=== PATIENT | male | born 1960 | race Caucasian/White ===

== ENCOUNTER 2018-06-16 14:09 | Inpatient (IN) | payer BC ==
[2018-06-16] MEDS ORDERED: NACL 0.9% 3 ML SYG IV (16:00)
[2018-06-16] MEDS ORDERED: ONDANSETRON 4 MG INJ IV (16:00)
[2018-06-16] MEDS ORDERED: CLONIDINE 0.1 MG/24 HR PATCH TRANSDERM (16:00)
[2018-06-16 16:05] LABS: ADD MAN DIFF? NO
[2018-06-16 16:07] LABS: WHITE BLOOD COUNT 5.6 10^3/ul (4.8-10.8)
[2018-06-16 16:07] LABS: BASOPHIL # 0.1 10^3/ul (0.0-0.1); BASOPHILS % 0.9 % (0.0-2.0); EOSINOPHILS # 0.1 10^3/ul (0.0-0.5); EOSINOPHILS % 1.2 % (0.0-7.0); HEMATOCRIT 47.8 % (42.0-52.0); HEMOGLOBIN 14.6 g/dl (14.0-18.0); LYMPHOCYTES # 1.1 10^3/ul (0.8-2.9); LYMPHOCYTES % 19.4 % (15.0-51.0); MEAN CORPUSCULAR HEMOGLOBIN 26.4 pg (29.0-33.0); MEAN CORPUSCULAR HGB CONC 30.5 g/dl (32.0-37.0); MEAN CORPUSCULAR VOLUME 86.6 fl (82.0-101.0); MEAN PLATELET VOLUME 10.2 fl (7.4-10.4); MONOCYTE # 0.5 10^3/ul (0.3-0.9); MONOCYTES % 8.4 % (0.0-11.0); NEUTROPHIL # 3.9 10^3/ul (1.6-7.5); NEUTROPHILS % 69.7 % (39.0-77.0); PLATELET COUNT 265 10^3/UL (140-415); RED BLOOD COUNT 5.52 10^6/ul (4.70-6.10); RED CELL DISTRIBUTION WIDTH 14.8 % (11.5-14.5)
[2018-06-16 16:23] LABS: ANION GAP 8 (5-13); BLOOD UREA NITROGEN 29 mg/dl (7-20); CARBON DIOXIDE 28 mmol/L (21-31); CHLORIDE 113 mmol/L (97-110); CREATININE 0.69 mg/dl (0.61-1.24); Estimated GFR > 60 mL/min (>60); GLUCOSE 120 mg/dl (70-220); POTASSIUM 3.9 mmol/L (3.5-5.1); SODIUM 149 mmol/L (135-144)
[2018-06-17] MEDS ORDERED: METOPROLOL 25 MG TAB (04:08)
[2018-06-17] MEDS: HYDROCODONE/APAP (5/325) TAB PO (04:28)
[2018-06-17] MEDS: METOPROLOL (XL) 25 MG TAB PO (04:28)
[2018-06-17 06:19] LABS: ADD MAN DIFF? NO
[2018-06-17 06:22] LABS: WHITE BLOOD COUNT 7.7 10^3/ul (4.8-10.8)
[2018-06-17 06:22] LABS: BASOPHILS % 0.4 % (0.0-2.0); EOSINOPHILS % 0.4 % (0.0-7.0); HEMATOCRIT 47.4 % (42.0-52.0); HEMOGLOBIN 14.4 g/dl (14.0-18.0); LYMPHOCYTES # 1.4 10^3/ul (0.8-2.9); LYMPHOCYTES % 18.1 % (15.0-51.0); MEAN CORPUSCULAR HEMOGLOBIN 26.7 pg (29.0-33.0); MEAN CORPUSCULAR HGB CONC 30.4 g/dl (32.0-37.0); MEAN CORPUSCULAR VOLUME 87.9 fl (82.0-101.0); MONOCYTE # 0.5 10^3/ul (0.3-0.9); MONOCYTES % 6.5 % (0.0-11.0); NEUTROPHIL # 5.7 10^3/ul (1.6-7.5); NEUTROPHILS % 74.2 % (39.0-77.0); PLATELET COUNT 255 10^3/UL (140-415); RED BLOOD COUNT 5.39 10^6/ul (4.70-6.10); RED CELL DISTRIBUTION WIDTH 14.6 % (11.5-14.5)
[2018-06-17 07:07] LABS: ALANINE AMINOTRANSFERASE 32 IU/L (13-69); ALBUMIN/GLOBULIN RATIO 0.78; ALKALINE PHOSPHATASE 101 IU/L (42-121); ANION GAP 7 (5-13); ASPARTATE AMINO TRANSFERASE 39 IU/L (15-46); BILIRUBIN,INDIRECT 0.6 mg/dl (0-1.1); BILIRUBIN,TOTAL 0.6 mg/dl (0.2-1.3); BLOOD UREA NITROGEN 33 mg/dl (7-20); CARBON DIOXIDE 28 mmol/L (21-31); CHLORIDE 113 mmol/L (97-110); CREATININE 0.71 mg/dl (0.61-1.24); Estimated GFR > 60 mL/min (>60); GLUCOSE 114 mg/dl (70-220); POTASSIUM 4.1 mmol/L (3.5-5.1); SODIUM 148 mmol/L (135-144); TOTAL PROTEIN 9.1 g/dl (6.1-8.1)
[2018-06-17 08:10] LABS: HEMOGLOBIN A1C 5.9 % (0-5.9)
[2018-06-17] MEDS: AMLODIPINE 5 MG TAB PO (08:39)
[2018-06-17] MEDS: ENOXAPARIN 30 MG/0.3 ML SYG SC (08:42)
[2018-06-17] MEDS: FUROSEMIDE 20 MG INJ IV ×2 (10:38→17:36)
[2018-06-17] MEDS: LORAZEPAM 2 MG INJ IV (12:08)
[2018-06-17] MEDS: CLONIDINE 0.1 MG/24 HR PATCH TRANSDERM (12:55)
[2018-06-18 05:15] LABS: AADO2 Arterial 137.5 mmHg (7.0-24.0); Allen Test ACCEPTAB; Arterial Base Excess 3.4 mmol/L (-3.0-3); Arterial Blood Gas Oxygen Sat 97.1 mmHG (95.0-98.0); Arterial COHb 1.1 % (0.0-3.0); Arterial Fraction of Oxyhgb 95.5 % (93.0-99.0); Arterial MetHb 0.5 % (0.0-1.5); Arterial pCO2 42.3 mmhg (35-45); MODE TRACH COLLAR; Site Right Radial
[2018-06-18 06:00] LABS: ADD MAN DIFF? NO
[2018-06-18 06:04] LABS: BASOPHIL # 0.1 10^3/ul (0.0-0.1); BASOPHILS % 0.5 % (0.0-2.0); EOSINOPHILS % 0.2 % (0.0-7.0); HEMATOCRIT 50.6 % (42.0-52.0); HEMOGLOBIN 15.6 g/dl (14.0-18.0); LYMPHOCYTES # 2.3 10^3/ul (0.8-2.9); LYMPHOCYTES % 23.5 % (15.0-51.0); MEAN CORPUSCULAR HGB CONC 30.8 g/dl (32.0-37.0); MEAN CORPUSCULAR VOLUME 87.7 fl (82.0-101.0); MEAN PLATELET VOLUME 11.1 fl (7.4-10.4); MONOCYTE # 0.7 10^3/ul (0.3-0.9); MONOCYTES % 6.9 % (0.0-11.0); NEUTROPHIL # 6.6 10^3/ul (1.6-7.5); NEUTROPHILS % 68.6 % (39.0-77.0); PLATELET COUNT 284 10^3/UL (140-415); RED BLOOD COUNT 5.77 10^6/ul (4.70-6.10)
[2018-06-18 06:04] LABS: WHITE BLOOD COUNT 9.7 10^3/ul (4.8-10.8)
[2018-06-18] MEDS: FUROSEMIDE 20 MG INJ IV ×2 (06:11→18:27)
[2018-06-18 06:49] LABS: ANION GAP 10 (5-13); BLOOD UREA NITROGEN 47 mg/dl (7-20); CALCIUM 10.2 mg/dl (8.4-10.2); CARBON DIOXIDE 32 mmol/L (21-31); CHLORIDE 109 mmol/L (97-110); CREATININE 0.88 mg/dl (0.61-1.24); Estimated GFR > 60 mL/min (>60); GLUCOSE 128 mg/dl (70-220); POTASSIUM 3.9 mmol/L (3.5-5.1); SODIUM 151 mmol/L (135-144)
[2018-06-18] MEDS: METOPROLOL (XL) 25 MG TAB PO (08:27)
[2018-06-18] MEDS: AMLODIPINE 5 MG TAB PO (08:27)
[2018-06-18] MEDS: ENOXAPARIN 30 MG/0.3 ML SYG SC (08:32)
[2018-06-18] MEDS: DEXTROSE 5% 1,000 ML IV (15:54)
[2018-06-18] MEDS ORDERED: LEVALBUTEROL (NEB) 0.63 MG/3 ML AMP HHN (21:00)
[2018-06-18] MEDS: LEVALBUTEROL (NEB) 0.63 MG/3 ML AMP HHN (23:56)
[2018-06-19] MEDS: ACETAMINOPHEN 325 MG TAB PO (05:42)
[2018-06-19] MEDS: FUROSEMIDE 20 MG INJ IV ×2 (05:43→18:00)
[2018-06-19 07:12] LABS: ANION GAP 7 (5-13); BLOOD UREA NITROGEN 54 mg/dl (7-20); CALCIUM 9.1 mg/dl (8.4-10.2); CARBON DIOXIDE 31 mmol/L (21-31); CHLORIDE 105 mmol/L (97-110); CREATININE 0.92 mg/dl (0.61-1.24); Estimated GFR > 60 mL/min (>60); GLUCOSE 316 mg/dl (70-220); MAGNESIUM 2.3 mg/dl (1.7-2.5); PHOSPHORUS 4.2 mg/dl (2.5-4.9); POTASSIUM 3.4 mmol/L (3.5-5.1); SODIUM 143 mmol/L (135-144)
[2018-06-19] MEDS: LEVALBUTEROL (NEB) 0.63 MG/3 ML AMP HHN ×2 (07:41→16:21)
[2018-06-19] MEDS: AMLODIPINE 5 MG TAB PO (08:42)
[2018-06-19] MEDS: METOPROLOL (XL) 25 MG TAB PO (08:42)
[2018-06-19] MEDS: ENOXAPARIN 30 MG/0.3 ML SYG SC (08:43)
[2018-06-19] MEDS: DEXTROSE 5% 1,000 ML IV (11:30)
[2018-06-19] MEDS: SCOPOLAMINE 1.5 MG PATCH TRANSDERM (15:28)
[2018-06-19] MEDS: POTASSIUM CHLORIDE 20 MEQ POWDER FOR ORAL SOLN NGT (15:31)
[2018-06-19 22:11] LABS: HEMATOCRIT 48.2 % (42.0-52.0); HEMOGLOBIN 14.3 g/dl (14.0-18.0)
[2018-06-20] MEDS: ACETAMINOPHEN 325 MG TAB PO (00:26)
[2018-06-20] MEDS: SOD CHLORIDE 0.45% 1,000 ML IV (01:00)
[2018-06-20] MEDS: LEVALBUTEROL (NEB) 0.63 MG/3 ML AMP HHN ×3 (02:16→16:37)
[2018-06-20 06:10] LABS: WHITE BLOOD COUNT 7.2 10^3/ul (4.8-10.8)
[2018-06-20 06:10] LABS: ADD MAN DIFF? NO; BASOPHIL # 0.1 10^3/ul (0.0-0.1); BASOPHILS % 0.7 % (0.0-2.0); EOSINOPHILS # 0.3 10^3/ul (0.0-0.5); EOSINOPHILS % 4.1 % (0.0-7.0); HEMATOCRIT 48.2 % (42.0-52.0); HEMOGLOBIN 14.6 g/dl (14.0-18.0); LYMPHOCYTES # 1.9 10^3/ul (0.8-2.9); LYMPHOCYTES % 26.6 % (15.0-51.0); MEAN CORPUSCULAR HEMOGLOBIN 26.6 pg (29.0-33.0); MEAN CORPUSCULAR HGB CONC 30.3 g/dl (32.0-37.0); MEAN PLATELET VOLUME 11.7 fl (7.4-10.4); MONOCYTE # 0.6 10^3/ul (0.3-0.9); MONOCYTES % 8.7 % (0.0-11.0); NEUTROPHIL # 4.3 10^3/ul (1.6-7.5); NEUTROPHILS % 59.6 % (39.0-77.0); PLATELET COUNT 197 10^3/UL (140-415); RED BLOOD COUNT 5.48 10^6/ul (4.70-6.10); RED CELL DISTRIBUTION WIDTH 15.1 % (11.5-14.5)
[2018-06-20 06:24] LABS: INR 1.12; PROTIME 14.5 Sec (11.9-14.9); PT RATIO 1.1
[2018-06-20 06:51] LABS: ANION GAP 8 (5-13); BLOOD UREA NITROGEN 50 mg/dl (7-20); CALCIUM 9.4 mg/dl (8.4-10.2); CARBON DIOXIDE 33 mmol/L (21-31); CHLORIDE 108 mmol/L (97-110); CREATININE 0.83 mg/dl (0.61-1.24); Estimated GFR > 60 mL/min (>60); GLUCOSE 113 mg/dl (70-220); MAGNESIUM 2.5 mg/dl (1.7-2.5); PHOSPHORUS 4.1 mg/dl (2.5-4.9); POTASSIUM 4.1 mmol/L (3.5-5.1); SODIUM 149 mmol/L (135-144)
[2018-06-20] MEDS: AMLODIPINE 5 MG TAB PO ×2 (09:00→14:55)
[2018-06-20] MEDS: METOPROLOL (XL) 25 MG TAB PO ×2 (09:00→14:55)
[2018-06-20] MEDS ORDERED: PROPOFOL 20 ML (13:00)
[2018-06-20] MEDS ORDERED: CEFAZOLIN 2 GM/50 ML (PMX) 50 ML IVPB (13:04)
[2018-06-20] MEDS: DEXTROSE 5% 1,000 ML IV (14:55)
[2018-06-20] MEDS ORDERED: SOD CHLORIDE 0.45% 1,000 ML IV (16:30)
[2018-06-21] MEDS: LEVALBUTEROL (NEB) 0.63 MG/3 ML AMP HHN ×4 (01:50→23:21)
[2018-06-21 05:57] LABS: ADD MAN DIFF? NO
[2018-06-21 06:10] LABS: BASOPHIL # 0.1 10^3/ul (0.0-0.1); BASOPHILS % 0.8 % (0.0-2.0); EOSINOPHILS # 0.3 10^3/ul (0.0-0.5); EOSINOPHILS % 4.4 % (0.0-7.0); HEMATOCRIT 46.4 % (42.0-52.0); HEMOGLOBIN 13.9 g/dl (14.0-18.0); LYMPHOCYTES % 30.7 % (15.0-51.0); MEAN CORPUSCULAR HEMOGLOBIN 26.6 pg (29.0-33.0); MEAN CORPUSCULAR VOLUME 88.9 fl (82.0-101.0); MEAN PLATELET VOLUME 12.2 fl (7.4-10.4); MONOCYTE # 0.7 10^3/ul (0.3-0.9); MONOCYTES % 10.1 % (0.0-11.0); NEUTROPHIL # 3.6 10^3/ul (1.6-7.5); NEUTROPHILS % 53.7 % (39.0-77.0); PLATELET COUNT 184 10^3/UL (140-415); RED BLOOD COUNT 5.22 10^6/ul (4.70-6.10); RED CELL DISTRIBUTION WIDTH 15.1 % (11.5-14.5)
[2018-06-21 06:10] LABS: WHITE BLOOD COUNT 6.6 10^3/ul (4.8-10.8)
[2018-06-21 06:38] LABS: ANION GAP 8 (5-13); BLOOD UREA NITROGEN 45 mg/dl (7-20); CALCIUM 9.5 mg/dl (8.4-10.2); CARBON DIOXIDE 29 mmol/L (21-31); CHLORIDE 111 mmol/L (97-110); CREATININE 0.77 mg/dl (0.61-1.24); Estimated GFR > 60 mL/min (>60); GLUCOSE 117 mg/dl (70-220); POTASSIUM 4.3 mmol/L (3.5-5.1); SODIUM 148 mmol/L (135-144)
[2018-06-21] MEDS: METOPROLOL (XL) 25 MG TAB PO (08:54)
[2018-06-21] MEDS: AMLODIPINE 5 MG TAB PO (08:55)
[2018-06-21] MEDS: FUROSEMIDE 20 MG TAB GTB (12:04)
[2018-06-21] MEDS: clonAZEPAM 0.5 MG TAB PO ×2 (12:58→20:53)
[2018-06-21] MEDS: ACETAMINOPHEN 325 MG TAB PO (23:32)
[2018-06-22] MEDS ORDERED: VITAMIN A & D 5 GM OINT PACKET TOP (04:33)
[2018-06-22] MEDS: LEVALBUTEROL (NEB) 0.63 MG/3 ML AMP HHN ×2 (08:07→16:10)
[2018-06-22] MEDS: AMLODIPINE 5 MG TAB PO (08:22)
[2018-06-22] MEDS: clonAZEPAM 0.5 MG TAB PO ×2 (08:22→20:49)
[2018-06-22] MEDS: FUROSEMIDE 20 MG TAB GTB (08:23)
[2018-06-22] MEDS: METOPROLOL (XL) 25 MG TAB PO (08:23)
[2018-06-22 08:58] LABS: ANION GAP 9 (5-13); BLOOD UREA NITROGEN 43 mg/dl (7-20); CALCIUM 9.7 mg/dl (8.4-10.2); CARBON DIOXIDE 29 mmol/L (21-31); CHLORIDE 108 mmol/L (97-110); CREATININE 0.85 mg/dl (0.61-1.24); Estimated GFR > 60 mL/min (>60); GLUCOSE 125 mg/dl (70-220); SODIUM 146 mmol/L (135-144)
[2018-06-23] MEDS: LEVALBUTEROL (NEB) 0.63 MG/3 ML AMP HHN ×3 (00:07→15:01)
[2018-06-23] MEDS: FUROSEMIDE 20 MG TAB GTB (08:54)
[2018-06-23] MEDS: clonAZEPAM 0.5 MG TAB PO ×2 (08:55→21:16)
[2018-06-23] MEDS: AMLODIPINE 5 MG TAB PO (08:55)
[2018-06-23] MEDS: METOPROLOL (XL) 25 MG TAB PO (08:55)
[2018-06-23] MEDS: QUETIAPINE 25 MG TAB GTB ×2 (13:04→21:16)
[2018-06-24] MEDS: LEVALBUTEROL (NEB) 0.63 MG/3 ML AMP HHN ×3 (00:29→16:22)
[2018-06-24] MEDS: clonAZEPAM 0.5 MG TAB PO ×2 (08:43→21:54)
[2018-06-24] MEDS: QUETIAPINE 25 MG TAB GTB ×2 (08:44→21:54)
[2018-06-24] MEDS: FUROSEMIDE 20 MG TAB GTB (08:44)
[2018-06-24] MEDS: METOPROLOL (XL) 25 MG TAB PO (08:44)
[2018-06-24] MEDS: AMLODIPINE 5 MG TAB PO (08:44)
[2018-06-24] MEDS ORDERED: BARIUM SULFATE 135 ML (E-Z HD) PO (10:38)
[2018-06-24] MEDS: CLONIDINE 0.1 MG/24 HR PATCH TRANSDERM (13:07)
[2018-06-25] MEDS: LEVALBUTEROL (NEB) 0.63 MG/3 ML AMP HHN ×4 (00:28→23:31)
[2018-06-25] MEDS: MAGNESIUM HYDROXIDE 30ML CUP PO (06:12)
[2018-06-25 06:46] LABS: ADD MAN DIFF? NO
[2018-06-25 06:53] LABS: ABNORMAL IP MESSAGE 1; BASOPHILS % 0.4 % (0.0-2.0); EOSINOPHILS # 0.3 10^3/ul (0.0-0.5); EOSINOPHILS % 7.1 % (0.0-7.0); HEMATOCRIT 39.5 % (42.0-52.0); HEMOGLOBIN 11.9 g/dl (14.0-18.0); LYMPHOCYTES # 1.1 10^3/ul (0.8-2.9); LYMPHOCYTES % 25.2 % (15.0-51.0); MEAN CORPUSCULAR HEMOGLOBIN 26.6 pg (29.0-33.0); MEAN CORPUSCULAR HGB CONC 30.1 g/dl (32.0-37.0); MEAN CORPUSCULAR VOLUME 88.2 fl (82.0-101.0); MONOCYTE # 0.4 10^3/ul (0.3-0.9); MONOCYTES % 9.4 % (0.0-11.0); NEUTROPHIL # 2.6 10^3/ul (1.6-7.5); NEUTROPHILS % 57.7 % (39.0-77.0); PLATELET COUNT 129 10^3/UL (140-415); POSITIVE DIFF @See below; RED BLOOD COUNT 4.48 10^6/ul (4.70-6.10); RED CELL DISTRIBUTION WIDTH 14.8 % (11.5-14.5)
[2018-06-25 06:53] LABS: WHITE BLOOD COUNT 4.5 10^3/ul (4.8-10.8)
[2018-06-25 07:26] LABS: ANION GAP 13 (5-13); BLOOD UREA NITROGEN 41 mg/dl (7-20); CALCIUM 9.1 mg/dl (8.4-10.2); CARBON DIOXIDE 31 mmol/L (21-31); CHLORIDE 99 mmol/L (97-110); CREATININE 0.78 mg/dl (0.61-1.24); Estimated GFR > 60 mL/min (>60); GLUCOSE 105 mg/dl (70-220); MAGNESIUM 2.3 mg/dl (1.7-2.5); PHOSPHORUS 4.8 mg/dl (2.5-4.9); POTASSIUM 4.1 mmol/L (3.5-5.1); SODIUM 143 mmol/L (135-144)
[2018-06-25] MEDS: clonAZEPAM 0.5 MG TAB PO ×2 (08:26→21:24)
[2018-06-25] MEDS: FUROSEMIDE 20 MG TAB GTB (08:27)
[2018-06-25] MEDS: METOPROLOL (XL) 25 MG TAB PO (08:27)
[2018-06-25] MEDS: AMLODIPINE 5 MG TAB PO (08:27)
[2018-06-25] MEDS: QUETIAPINE 25 MG TAB GTB ×2 (08:27→21:24)
[2018-06-25] MEDS ORDERED: ALTEPLASE (CATHFLO) 2 MG INJ CATHETER (22:00)
[2018-06-25] MEDS: ALTEPLASE (CATHFLO) 2 MG INJ CATHETER (23:23)
[2018-06-26] MEDS: clonAZEPAM 0.5 MG TAB PO (08:21)
[2018-06-26] MEDS: METOPROLOL (XL) 25 MG TAB PO (08:21)
[2018-06-26] MEDS: QUETIAPINE 25 MG TAB GTB (08:21)
[2018-06-26] MEDS: MAGNESIUM HYDROXIDE 30ML CUP PO (08:21)
[2018-06-26] MEDS: AMLODIPINE 5 MG TAB PO (08:22)
[2018-06-26] MEDS: FUROSEMIDE 20 MG TAB GTB (08:22)
[2018-06-26] MEDS: LEVALBUTEROL (NEB) 0.63 MG/3 ML AMP HHN ×2 (08:51→17:57)
== END 2018-06-26 19:25 | DRG 391 ==
LOC: TEL 14:09
PROC: 0DH63UZ Insertion of Feeding Device into Stomach, Percutaneous Approach (ICD-10-PCS; principal; 2018-06-20 12:50)
DX: R13.12 Dysphagia, oropharyngeal phase (principal); J18.9 Pneumonia, unspecified organism; G92 Toxic encephalopathy; I50.33 Acute on chronic diastolic (congestive) heart failure; J96.20 Acute and chronic respiratory failure, unspecified whether with hypoxia or hypercapnia; N17.9 Acute kidney failure, unspecified; I11.0 Hypertensive heart disease with heart failure; R45.1 Restlessness and agitation; Z93.0 Tracheostomy status
CPT/HCPCS: 36600; 71045; 74018; 74230; 80048; 80053; 82803; 83036; 83735; 84100; 85014; 85018; 85025; 85610; 92507; 92526; 92610; 92611; 93306; 93931; 94640; 94664; 97110; 97116; 97162; 97530